=== PATIENT | female | born 1990 | race American Indian/Alaskan Native ===

== ENCOUNTER 2018-06-15 18:43 | Emergency (ER) | payer MEDICAID ==
[2018-06-15] MEDS ORDERED: IBUPROFEN PO ONE ×2 (20:15→20:18)
--- NOTE | 2018-06-15 20:15 | Emergency Department Report ---
Chief Complaint: Upper Respiratory Infection Stated Complaint: FLU LIKE SX Time Seen by Provider: 06/15/18 20:13 - HPI History of Present Illness: pt presents with sore throat that began three days ago body aches, subjective fever, cough no sick contacts took ibuprofen this morning and tylenol at 4 PM no PMHx no daily meds non smoker non drinker no drug use - Exam Vital Signs: Vital Signs 06/15/18 19:17 Temperature 100.5 F H Pulse Rate 97 H Respiratory 18 Rate Blood Pressure 116/76 [Left] O2 Sat by Pulse 100 Oximetry MSE screening note: Focused history and physical exam performed. Due to findings the following was ordered: rapid strep, CXR pt given ibuprofen in triage rapid strep sent ED Disposition for MSE Condition: Stable
[2018-06-15 21:31] LABS: HCG Qualitative,Urine Negative (Negative)
[2018-06-15 21:34] LABS: Bilirubin,Urine NEG (Negative); Blood,Urine NEG (Negative); Color,Urine Yellow (Yellow); Protein,Urine <15 mg/dL mg/dL (Negative)
--- NOTE | 2018-06-15 23:26 | Emergency Department Report ---
Minor Respiratory - HPI Chief Complaint: Upper Respiratory Infection Stated Complaint: FLU LIKE SX Time Seen by Provider: 06/15/18 20:13 Duration: 3 Days Pain Location: Throat Minor Respiratory: Yes Sore Throat, Yes Able to Tolerate Fluids, Yes Cough, Yes Fever, No Rhinorrhea, No Ear Pain, No Sick Contacts, No Hemoptysis, No Chest Pain, No Shortness of Breath Other History: 27-year-old female admitted to the emergency room for body aches and sore throat hot and cold flashes with cough and congestion 3 days. Patient is taking ibuprofen this morning and Tylenol this afternoon. ED Review of Systems ROS: Stated complaint: FLU LIKE SX Other details as noted in HPI Constitutional: fever Eyes: denies: eye pain, eye discharge, vision change ENT: throat pain, congestion Respiratory: cough Cardiovascular: denies: chest pain, palpitations Gastrointestinal: denies: abdominal pain, nausea, diarrhea Genitourinary: denies: urgency, dysuria, discharge Musculoskeletal: denies: back pain, joint swelling, arthralgia Skin: denies: rash, lesions Neurological: denies: headache, weakness, paresthesias ED Past Medical Hx - Past Medical History Previous Medical History?: Yes Hx Hypertension: No Hx Diabetes: No Hx Deep Vein Thrombosis: No Hx Renal Disease: No Hx Sickle Cell Disease: Yes (trait) Hx Seizures: No Hx Asthma: No Hx HIV: No - Surgical History Past Surgical History?: Yes Additional Surgical History: X 3 - Social History Smoking Status: Never Smoker Substance Use Type: None - Medications Home Medications: Home Medications Medication Instructions Recorded Confirmed Last Taken Type Ferrous Sulfate [Iron] 325 mg PO BID 01/22/18 01/22/18 01/20/18 History Ibuprofen [Motrin 600 MG tab] 600 mg PO Q8H PRN #21 tablet 06/16/18 Unknown Rx Promethazine /Codeine 5 ml PO Q6H PRN #100 ml 06/16/18 Unknown Rx [Phenergan/Codeine 6.25-10 mg/5Ml] Minor Respiratory Exam - Exam General: Vital signs noted. No distress. Alert and acting appropriately. HEENT: Yes Moist Mucous Membranes, No Pharyngeal Erythema, No Pharyngeal Exudates, No Rhinorrhea, No Conjuctival Injection, No Frontal Tenderness, No Maxillary Tenderness Ear: Neither TM Bulge, Neither TM Erythema, Neither EAC Pain, Neither EAC Discharge Neck: Yes Supple, No Adenopathy Lungs: Yes Good Air Exchange, No Wheezes, No Ronchi, No Stridor, No Cough, No Labored Respirations, No Retractions, No Use of Accessory Muscles, No Other Abnormal Lung Sounds Heart: Yes Regular, No Murmur Abdomen: Yes Normal Bowel Sounds, No Tenderness, No Peritoneal Signs Skin: No Rash, No Edema Neurologic: Alert and oriented, no deficits. Musculoskeletal: Unremarkable. ED Course Vital Signs 06/15/18 06/15/18 06/15/18 19:17 20:14 20:41 Temperature 100.5 F H 100.5 F H Pulse Rate 97 H 97 H Respiratory 18 18 18 Rate Blood Pressure 116/76 Blood Pressure 116/76 [Left] O2 Sat by Pulse 100 100 Oximetry ED Medical Decision Making - Radiology Data Radiology results: report reviewed Patient: KAYLA ALFARO MR# : [id number] : 1990 Acct:[id number] Age/Sex: 27 / F ADM Date: 06/15/18 Loc: ED Attending Dr: Ordering Physician: ASIYA BEAULIEU Date of Service: 06/15/18 Procedure(s): XR chest routine 2V Accession Number(s): [id number] cc: ASIYA BEAULIEU Fluoro Time In Minutes: PROCEDURE: XR CHEST ROUTINE 2V TECHNIQUE: PA and lateral chest radiographs were obtained. HISTORY: cough COMPARISONS: None. FINDINGS: Heart: Normal. Mediastinum/Vessels: Normal. Lungs/Pleural space: Normal. Bony thorax: No acute osseous abnormality. IMPRESSION: Normal examination. This document is electronically signed by Frank Lyon MD., June 15 2018 11:47:25 PM ET Transcribed By: CO Dictated By: FRANK LYON MD Electronically Authenticated By: FRANK LYON MD Signed Date/Time: 06/15/189 DD/ 17 TD/TT: 06/15/182217 - Medical Decision Making Patient has been evaluated by this provider. Chest x-ray has been ordered and pending results. Rapid strep test is negative. Patient temperature has improved from 100.5 to now 98.6 check by this provider. Patient appears to be nontoxic. Critical care attestation.: If time is entered above; I have spent that time in minutes in the direct care of this critically ill patient, excluding procedure time. ED Disposition Clinical Impression: Viral syndrome Disposition: DC-01 TO HOME OR SELFCARE Is pt being admited?: No Does the pt Need Aspirin: No Condition: Stable Instructions: Viral Syndrome (ED) Additional Instructions: Take ibuprofen and cough medication as needed. Increase her fluid intake and advance her diet as tolerated and follow up with the primary care provider if his symptoms persist or gets worse. Prescriptions: Ibuprofen [Motrin 600 MG tab] 600 mg PO Q8H PRN #21 tablet PRN Reason: Pain Promethazine /Codeine [Phenergan/Codeine 6.25-10 mg/5Ml] 5 ml PO Q6H PRN #100 ml PRN Reason: cough Referrals: ELIECER CARRILLO MD [Primary Care Provider] - 3-5 Days Forms: Work/School Release Form(ED)
--- NOTE | 2018-06-15 23:49 | XRay Report ---
PROCEDURE: XR CHEST ROUTINE 2V TECHNIQUE: PA and lateral chest radiographs were obtained. HISTORY: cough COMPARISONS: None. FINDINGS: Heart: Normal. Mediastinum/Vessels: Normal. Lungs/Pleural space: Normal. Bony thorax: No acute osseous abnormality. IMPRESSION: Normal examination. This document is electronically signed by Frank Duke MD., June 15 2018 11:47:25 PM ET
[2018-06-16 01:24] VITALS: BP 120/73
== END 2018-06-16 01:15 | disposition home or self-care (01) ==
LOC: ED 18:43
DX: B34.9 Viral infection, unspecified (principal)
CPT/HCPCS: 71046; 81001; 81025; 87116; 87430; 99284